=== PATIENT | female | born 1975 | race Hispanic/Latino ===

== ENCOUNTER 2020-01-30 09:11 | Outpatient (CLI) | payer OTHER | END 2020-01-30 09:12 | disposition home or self-care (01) | LOC: DTY/OP 09:11 | PROVIDERS: ATTEND Surgery | DX: E66.01 Morbid (severe) obesity due to excess calories (principal) | CPT/HCPCS: 97802 ==

== ENCOUNTER 2020-03-08 10:00 | Outpatient (CLI) | payer OTHER | END 2020-03-08 10:01 | disposition home or self-care (01) | LOC: DTY/OP 10:00 | PROVIDERS: ATTEND Surgery | DX: E66.01 Morbid (severe) obesity due to excess calories (principal) | CPT/HCPCS: 97802 ==

== ENCOUNTER 2020-04-06 09:00 | Outpatient (CLI) | payer OTHER | END 2020-04-06 09:01 | disposition home or self-care (01) | LOC: DTY/OP 09:00 | PROVIDERS: ATTEND Surgery | DX: E66.01 Morbid (severe) obesity due to excess calories (principal) | CPT/HCPCS: 97802 ==

== ENCOUNTER 2020-05-07 06:44 | Outpatient (CLI) | payer OTHER ==
--- NOTE | 2020-05-07 16:38 | RAD ---
Exam: Chest one view HISTORY:Preoperative exam Comparison: 05/11/2010 FINDINGS: Cardiac silhouette: Normal Aorta: Unremarkable Pulmonary vessels: Normal Costophrenic angles: Clear LUNGS: No masses or consolidation. Pneumothorax: None Osseous abnormalities: None IMPRESSION: No acute cardiopulmonary process.
[2020-05-07 18:01] LABS: #Basophils 0.1 thou/uL (0.0-0.2); #Eosinphils 0.1 thou/uL (0.0-0.7); #Monocytes 0.6 thou/uL (0.11-0.59); #Neutrophils 5.1 thou/uL (1.40-6.50); %Basophils 0.9 % (0.0-1.0); %Lymphocytes 25.6 % (21.0-51.0); %Monocytes 7.4 % (0.0-10.0); %Neutrophils 65.1 % (42.0-75.0); Hemoglobin 13.6 g/dL (12.0-16.0); Mean Corpuscular HGB CONC 33.5 g/dL (32.0-36.0); Mean Corpuscular Hemoglobin 30.8 pg (27.0-31.0); Mean Corpuscular Volume 91.9 fL (78.0-98.0); Mean Platelet Volume 10.9 fL (7.4-10.4); Platelet Count 211 thou/uL (130-400); RBC Distribution Width 12.7 % (11.5-14.5); Red Blood Cell (RBC) Count 4.42 mill/uL (4.20-5.40); White Blood Cell (WBC) Count 7.8 thou/uL (4.8-10.8)
[2020-05-07 18:19] LABS: Hemoglobin A1c 5.3 % (4.0-6.0)
[2020-05-07 18:45] LABS: ALT (SGPT) 14 U/L (8-55); AST (SGOT) 16 U/L (5-34); Albumin 4.3 g/dL (3.5-5.0); Alkaline Phosphatase 73 U/L (40-110); Anion Gap 9 mmol/L (10-20); BUN (Urea Nitrogen) 18 mg/dL (7.0-18.7); Bilirubin, Total 0.3 mg/dL (0.2-1.2); Calc. Creatinine Clearance 0 mL/min (70-130); Calcium 8.9 mg/dL (7.8-10.44); Carbon Dioxide 28 mmol/L (22-29); Chloride 104 mmol/L (98-107); Estimated GFR-MDRD 64; Globulin 3.2 g/dL (2.4-3.5); Glucose 87 mg/dL (70-105); Potassium 3.6 mmol/L (3.5-5.1); Protein, Total 7.5 g/dL (6.0-8.3); Sodium 137 mmol/L (136-145)
[2020-05-07 18:50] LABS: BHCG - Serum Negative (NEGATIVE); Pregs Control Background? CLEAR/WHITE (CLR/WHITE); Pregs Control Bar Appear? YES (CONTROL BAR)
[2020-05-08 12:14] LABS: SARS-CoV-2 MS2 Positive; SARS-CoV-2 N Gene Negative; SARS-CoV-2 S Gene Negative; SARS-CoV-2 orf1ab Negative
== END 2020-05-07 06:45 | disposition home or self-care (01) ==
LOC: LABBT 06:44
PROVIDERS: ATTEND Surgery
DX: Z01.818 Encounter for other preprocedural examination (principal); Z11.59 Encounter for screening for other viral diseases; E66.01 Morbid (severe) obesity due to excess calories
CPT/HCPCS: 71045; 80053; 83036; 84703; 85025; 87635; U0003

== ENCOUNTER 2020-05-07 16:00 | Inpatient (IN) | payer OTHER ==
[2020-05-10] MEDS ORDERED: Heparin 5,000 UNITS/ML VIAL ONE (09:16)
[2020-05-10] MEDS ORDERED: Albuterol Sulfate HFA (OR ONLY) ONE (10:07)
[2020-05-10] MEDS ORDERED: Fentanyl 250 MCG/5 ML VIAL ONE (10:07)
[2020-05-10] MEDS ORDERED: Famotidine/PF 20 mg/2ml Vial ONE (10:11)
[2020-05-10] MEDS ORDERED: Midazolam HCl 2 mg/2 ml Vial ONE (10:11)
[2020-05-10] MEDS ORDERED: Lidocaine 1% w/Epinephrine 1:100K 20 ML VIAL ONE (10:39)
[2020-05-10] MEDS ORDERED: Bupivacaine 0.25% HCL 30 ML VIAL ONE (10:39)
[2020-05-10] MEDS ORDERED: Lidocaine 1% PF 5 ML VIAL ONE (11:04)
[2020-05-10] MEDS ORDERED: Glycopyrrolate 0.2 MG/ML 5 ML SYRINGE ONE (11:04)
[2020-05-10] MEDS ORDERED: EPHEDRINE 25 MG/5 ML SYRINGE ONE (11:04)
[2020-05-10] MEDS ORDERED: PROPOFOL 200 MG/20 ML VIAL ONE (11:04)
[2020-05-10] MEDS ORDERED: Dexamethasone 20 MG/5 ML VIAL ONE (11:04)
[2020-05-10] MEDS ORDERED: Ondansetron PF 4 MG/2 ML Vial ONE (11:04)
[2020-05-10] MEDS ORDERED: Rocuronium Bromide 10 MG/ML (10ML VIAL) ONE (11:04)
[2020-05-10] MEDS ORDERED: Ketorolac Tromethamine 30 MG/ML VIAL ONE (11:04)
[2020-05-10] MEDS ORDERED: Acetaminophen 500 MG TAB ONE (11:07)
[2020-05-10] MEDS ORDERED: Ondansetron HCl/PF 4 MG/2 ML Vial IVP PRN (12:54)
[2020-05-10] MEDS ORDERED: diphenhydrAMINE 50 MG/ML VIAL IM PRN (12:54)
[2020-05-10] MEDS ORDERED: Zolpidem Tartrate 5 MG TAB PO PRN (12:54)
[2020-05-10] MEDS ORDERED: diphenhydrAMINE 25 MG CAP PO PRN (12:54)
[2020-05-10] MEDS ORDERED: Promethazine HCl 25 MG/ML VIAL SLOW IVP PRN (12:54)
[2020-05-10] MEDS ORDERED: Promethazine HCl 25 MG/ML VIAL IM PRN ×2 (12:54→13:48)
[2020-05-10] MEDS ORDERED: fentaNYL Citrate/PF 2,000 MCG in Sodium Chloride 0.9% 60 ML IV PRN (12:54)
[2020-05-10] MEDS ORDERED: Naloxone HCl 0.4 mg/ml Vial IV PRN (12:54)
[2020-05-10] MEDS ORDERED: diphenhydrAMINE 50 MG/ML VIAL IVP PRN ×2 (12:54→13:48)
[2020-05-10] MEDS ORDERED: Communication Order-Pharmacy FS SCH (13:00)
[2020-05-10] MEDS ORDERED: Fentanyl 100 MCG/2 ML VIAL ONE (13:16)
[2020-05-10] MEDS ORDERED: Hydrocodone-Acetamin 15 ML UDCUP PO PRN (13:48)
[2020-05-10] MEDS ORDERED: Dextrose 5% in Water 1,000 ML IV PRN (13:48)
[2020-05-10] MEDS ORDERED: Dextrose 50% Abboject 50 ML SYRINGE SLOW IVP PRN (13:48)
[2020-05-10] MEDS ORDERED: Ondansetron PF 4 MG/2 ML Vial IVP PRN (13:48)
[2020-05-10] MEDS ORDERED: hydrALAZINE 20 MG/ML VIAL SLOW IVP PRN (13:48)
[2020-05-10 14:08] VITALS: BMI 41.9
[2020-05-10] MEDS: Promethazine HCl 25 MG/ML VIAL IM PRN ×3 (14:16→21:59)
[2020-05-10] MEDS: D5 1/2 NS w/20 mEq KCL 1,000 ML IV SCH ×2 (17:05→23:05)
[2020-05-10] MEDS: Ondansetron PF 4 MG/2 ML Vial IVP PRN ×2 (17:05→23:05)
--- NOTE | 2020-05-10 17:23 | OP ---
DATE OF PROCEDURE: 05/10/2020 PREOPERATIVE DIAGNOSIS: Morbid obesity with body mass index of 49. POSTOPERATIVE DIAGNOSIS: Morbid obesity with body mass index of 49. PROCEDURE PERFORMED: Laparoscopic sleeve gastrectomy with GORE staple line reinforcement and 38-[place] bougie. ANESTHESIA: General. ESTIMATED BLOOD LOSS: 50 mL. COMPLICATIONS: None. FINDINGS: Normal postoperative EGD. DESCRIPTION OF PROCEDURE: The patient was taken to the operating room and laid supine on the operating room table. After general anesthetic was obtained, the arms and legs were double strapped to bariatric table. OG tube was used to decompress the stomach. The abdomen was prepped and draped in a sterile fashion. A left subcostal 5 mm Optiview trocar was placed in the usual fashion. High-flow pneumoperitoneum was obtained. Left and right abdominal 12-mm ports as well as a right subcostal 5-mm port were placed under direct visualization. A 5-mm incision was made at the xiphoid. Vishal was used to raise the liver off the GE junction. Short gastrics were taken down from mid body of the stomach to the left joe of diaphragm. Left joe, posterior fundus, and angle of His completely dissected. There was no hiatal hernia. Short gastrics were taken down to the distance of 6 cm proximal to the pylorus. Bougie was brought in and its tip was left in the antrum of the stomach. Multiple loads of the [place] stapling device with GORE staple line reinforcement were used to perform the sleeve with 1st fired up at the distance of 6 cm proximal to the pylorus, angled up towards the incisura. Care was taken to avoid being too close to incisura. Multiple loads were then fired up along the bougie. Stomach was completely transected at the angle of His. Stomach was removed from left abdominal incision. This fascial defect was closed using GraNee needle and 0 Vicryl tie. EGD scope was passed through the esophagus and stomach to the level of the duodenum without obstruction and no leak of air through the staple line. There was no stricture at the incisura. EGD scope was used to decompress the stomach and was pulled and removed. The Vishal retractor was removed under direct visualization without bleeding. All port sites were removed under direct visualization without bleeding. Pneumoperitoneum was let down. Vicryl was used to close the fascial defect from the left abdominal incision. All incisions were irrigated and closed using 4-0 Monocryl and Dermabond. The patient was sent to Recovery in stable condition. All instrument counts, needle counts, and lap counts were correct. Job ID: [id number]
[2020-05-10] MEDS: Enoxaparin Sodium 40 MG/0.4 ML SYRINGE SC SCH (19:53)
[2020-05-11] MEDS ORDERED: Ondansetron PF 4 MG/2 ML Vial IVP SCH (00:30)
[2020-05-11] MEDS ORDERED: Scopolamine 1.5 mg/72 hour Patch TOP SCH (01:00)
[2020-05-11 05:38] LABS: #Monocytes 1.1 thou/uL (0.11-0.59); #Neutrophils 11.5 thou/uL (1.40-6.50); %Basophils 0.1 % (0.0-1.0); %Eosinophils 0.1 % (0.0-10.0); %Lymphocytes 7.4 % (21.0-51.0); %Monocytes 7.8 % (0.0-10.0); %Neutrophils 84.6 % (42.0-75.0); Hemoglobin 12.8 g/dL (12.0-16.0); Mean Corpuscular HGB CONC 33.1 g/dL (32.0-36.0); Mean Corpuscular Hemoglobin 30.3 pg (27.0-31.0); Mean Corpuscular Volume 91.5 fL (78.0-98.0); Mean Platelet Volume 10.9 fL (7.4-10.4); Platelet Count 198 thou/uL (130-400); RBC Distribution Width 12.5 % (11.5-14.5); Red Blood Cell (RBC) Count 4.22 mill/uL (4.20-5.40); White Blood Cell (WBC) Count 13.6 thou/uL (4.8-10.8)
[2020-05-11 05:56] LABS: Anion Gap 11 mmol/L (10-20); BUN (Urea Nitrogen) 6 mg/dL (7.0-18.7); Calc. Creatinine Clearance 159 mL/min (70-130); Calcium 8.7 mg/dL (7.8-10.44); Carbon Dioxide 24 mmol/L (22-29); Chloride 106 mmol/L (98-107); Estimated GFR-MDRD 74; Glucose 131 mg/dL (70-105); Potassium 4.1 mmol/L (3.5-5.1); Sodium 137 mmol/L (136-145)
[2020-05-11] MEDS: D5 1/2 NS w/20 mEq KCL 1,000 ML IV SCH ×2 (06:09→15:44)
[2020-05-11] MEDS ORDERED: Fentanyl 100 MCG/2 ML VIAL SLOW IVP PRN ×2 (08:18)
[2020-05-11] MEDS ORDERED: Hydrocodone-Acetamin 15 ML UDCUP PO PRN (08:19)
[2020-05-11] MEDS: FLUoxetine HCl 10 MG CAP PO SCH (08:25)
--- NOTE | 2020-05-11 08:33 | PRG ---
DATE OF SERVICE: 05/11/2020 SUBJECTIVE: Ms. Del Valle had some significant nausea overnight. She was dry heaving some. She had a scopolamine patch placed and she feels better this morning. She has been ambulatory. She has minimal pain. OBJECTIVE: VITAL SIGNS: She is afebrile. Her vital signs are stable. ABDOMEN: Soft. The wounds are healing well. ASSESSMENT: Postoperative day one gastric sleeve with moderate postoperative nausea. PLAN: We will continue observation. Continue IV fluids. If she feels better later on this afternoon, can be discharged. Job ID: [id number]
[2020-05-11] MEDS: Pantoprazole 40 MG VIAL IVP SCH (08:35)
[2020-05-11] MEDS: Ondansetron PF 4 MG/2 ML Vial IVP PRN ×2 (14:10→20:02)
--- NOTE | 2020-05-11 14:35 | PDOC.GSPN ---
Surgery Progress Note: Obj - Vital signs Vital signs: Vital Signs - Most Recent Temp Pulse Resp BP Pulse Ox 98.8 F 73 16 153/96 H 98 05/11/20 10:31 05/11/20 10:31 05/11/20 10:31 05/11/20 10:31 05/11/20 10:31 Surgery Progress Note: Results - Labs Result Diagrams: 05/11/20 04:48 05/11/20 04:48 Lab results: Laboratory Results - last 24 hr 05/11/20 05/11/20 04:48 04:48 WBC 13.6 H RBC 4.22 Hgb 12.8 Hct 38.6 MCV 91.5 MCH 30.3 MCHC 33.1 RDW 12.5 Plt Count 198 MPV 10.9 H Neutrophils % 84.6 H Lymphocytes % 7.4 L Monocytes % 7.8 Eosinophils % 0.1 Basophils % 0.1 Neutrophils # 11.5 H Lymphocytes # 1.0 L Monocytes # 1.1 H Eosinophils # 0.0 Basophils # 0.0 Sodium 137 Potassium 4.1 Chloride 106 Carbon Dioxide 24 Anion Gap 11 BUN 6 L Creatinine 0.83 Estimated GFR (MDRD) 74 Glucose 131 H Calcium 8.7 Surgery Progress Note: A/P - Problem (1) Morbid obesity Current Visit: Yes Code(s): E66.01 - MORBID (SEVERE) OBESITY DUE TO EXCESS CALORIES Status: Acute
[2020-05-11] MEDS: Enoxaparin Sodium 40 MG/0.4 ML SYRINGE SC SCH (20:02)
[2020-05-12] MEDS: D5 1/2 NS w/20 mEq KCL 1,000 ML IV SCH ×2 (00:13→09:53)
[2020-05-12] MEDS: FLUoxetine HCl 10 MG CAP PO SCH (09:51)
[2020-05-12] MEDS: Pantoprazole 40 MG VIAL IVP SCH (10:08)
--- NOTE | 2020-05-12 11:28 | DIS ---
DATE OF ADMISSION: 05/10/2020 DATE OF DISCHARGE: 05/12/2020 ADMITTING DIAGNOSIS: Morbid obesity. DISCHARGE DIAGNOSIS: Morbid obesity. PROCEDURE PERFORMED: Laparoscopic sleeve gastrectomy by Dr. Block without complication. CONDITION ON DISCHARGE: Improved. STAFF: Antonio Block MD. POSTOPERATIVE COURSE: On hospital day #1, the patient had significant nausea and inability to take much by mouth. She was dry heaving. She was hemodynamically stable. Her labs all looked fine. On postoperative day 2, her nausea is much improved. She is ambulatory. She is tolerating a liquid diet of sufficient amounts to where she likely will not get dehydrated when she gets discharged. Her wounds are clear. Vital signs are stable. She is thus being discharged home on a liquid diet for the next few weeks. She will follow up with me in the office. Prescriptions for Lortab Elixir and Zofran sent to her pharmacy. Follow up with me in 2 weeks. Job ID: [id number]
[2020-05-12 12:04] VITALS: BP 128/77; TEMP 98.8
== END 2020-05-12 12:00 | disposition home or self-care (01) | DRG 621 ==
LOC: SURG A 05-10 08:51
PROVIDERS: ADMIT Surgery; ATTEND Surgery
PROC: 0DB64Z3 Excision of Stomach, Percutaneous Endoscopic Approach, Vertical (ICD-10-PCS; principal; 2020-05-10)
PROC: 0DJ08ZZ Inspection of Upper Intestinal Tract, Via Natural or Artificial Opening Endoscopic (ICD-10-PCS; 2020-05-10)
DX: E66.01 Morbid (severe) obesity due to excess calories (principal); F41.9 Anxiety disorder, unspecified; F32.9 Major depressive disorder, single episode, unspecified; K21.9 Gastro-esophageal reflux disease without esophagitis; F90.9 Attention-deficit hyperactivity disorder, unspecified type; G89.29 Other chronic pain; Z68.42 Body mass index [BMI] 45.0-49.9, adult; Z79.899 Other long term (current) drug therapy; Z90.49 Acquired absence of other specified parts of digestive tract; R11.0 Nausea
CPT/HCPCS: 36415; 71045; 80048; 80053; 83036; 84703; 85025; 87635; 88307; 88312; 93005; 93010; C9113; J0690; J1100; J1644; J1650; J1885; J2001; J2250; J2405; J2550; J2704; J3010; J3480; S0020; S0028; U0003